=== PATIENT | female | born 1955 | race Caucasian/White ===

== ENCOUNTER 2017-01-13 22:25 | Emergency (ER) | payer BC, OTHER ==
[~2017-01-13 22:25] MED LIST: EFFE150C PO; FERR324T4 PO; GABA300 PO; PROT40TA PO; REME30TA2 PO; ZYPR2.5T2 PO
[2017-01-14 00:18] LABS: AUTOMATED NEUTROPHIL # 2.2 TH/MM3 (1.8-7.7); BASOPHIL % 0.7 % (0.0-2.0); EOSINOPHIL # 0.3 TH/MM3 (0-0.4); EOSINOPHIL % 5.4 % (0.0-4.0); HEMATOCRIT 35.5 % (35.0-46.0); HEMO FLAGS DIFF FINAL; LYMPH % 41.6 % (9.0-44.0); LYMPHOCYTE # 2.1 TH/MM3 (1.0-4.8); MEAN CELL VOLUME 92.8 FL (80.0-100.0); MEAN CORPUSCULAR HEMOGLOBIN 31.1 PG (27.0-34.0); MEAN CORPUSCULAR HGB CONC 33.5 % (32.0-36.0); MONO % 8.5 % (0.0-8.0); NEUT % 43.8 % (16.0-70.0); PLATELET COUNT 219 TH/MM3 (150-450); RED BLOOD COUNT 3.83 MIL/MM3 (4.00-5.30); RED CELL DISTRIBUTION WIDTH 14.8 % (11.6-17.2); WHITE BLOOD COUNT 5.1 TH/MM3 (4.0-11.0)
--- NOTE | 2017-01-14 00:23 | PD ---
HPI Chief Complaint: Psychiatric Symptoms Time Seen by Provider: 00:23 Travel History International Travel<30 days: No Contact w/Intl Traveler<30days: No Traveled to known affect area: No History of Present Illness HPI 61 year-old female presents to emergency department under a Marshall act for psychiatric evaluation. Patient was seen at [facility], medically cleared , and transferred here. Patient states she has history of depression and this is getting worse. She also reports a history of alcoholism and recent relapse. Denies any suicidal or homicidal ideations but states that her depression is getting worse and worse. Currently she has no acute medical needs to report. She is requesting something to help her sleep. PFSH Past Medical History Blood Disorders: No Depression: Yes Cancer: No Cardiovascular Problems: No Endocrine: No Genitourinary: No Immune Disorder: No Musculoskeletal: Yes Neurologic: No Psychiatric: Yes (H/O SELF INJURIOUS BEHAVIORS) Reproductive: No Respiratory: No Past Surgical History Section: Yes (X 2 IN 1989 AND 1995) Cholecystectomy: Yes (1996) Gynecologic Surgery: Yes ( X2) Neurologic Surgery: Yes (L5, S1 DISC) Social History Alcohol Use: Yes (WINE DAILY) Tobacco Use: No Substance Use: Yes (WINE /VODKA1 WEEK AGO, DRINKS IN EXCESS) Allergies-Medications (Allergen,Severity, Reaction): Coded Allergies: Buspar (Verified Allergy, Severe, 09/01/08) Phenergan (Verified Allergy, Severe, HTN, 09/01/08) Sulfa (Verified Allergy, Severe, VOMITING, 09/01/08) Wellbutrin (Verified Allergy, Severe, HTN, 09/01/08) Reported Meds & Prescriptions Reported Meds & Active Scripts Active Reported Remeron Cathy-Tab (Mirtazapine) 30 Mg Tab 45 Mg PO HS Neurontin (Gabapentin) 300 Mg Cap 300 Mg PO 9A AND NOON Zyprexa (Olanzapine) 2.5 Mg Tab 2.5 Mg PO BID Remeron Cathy-Tab (Mirtazapine) 30 Mg Tab 45 Mg PO Effexor Xr (Venlafaxine HCl) 150 Mg Cap 150 Mg PO BID Protonix (Pantoprazole Sodium) 40 Mg Tabdr 40 Mg PO DAILY Ferrous Sulfate 325 Mg Tab 325 Mg PO 6 Ferrous Sulfate 325 Mg Tab 325 Mg PO DAILY Review of Systems Except as stated in HPI: all other systems reviewed are Neg Physical Exam Narrative GENERAL: Well-nourished female patient, in no acute distress SKIN: Focused skin assessment warm/dry. HEAD: Atraumatic. Normocephalic. EYES: Pupils equal and round. No scleral icterus. No injection or drainage. ENT: No nasal bleeding or discharge. Mucous membranes pink and moist. NECK: Trachea midline. No JVD. CARDIOVASCULAR: Regular rate and rhythm. No murmur appreciated. RESPIRATORY: No accessory muscle use. Clear to auscultation. Breath sounds equal bilaterally. GASTROINTESTINAL: Abdomen soft, non-tender, nondistended. Hepatic and splenic margins not palpable. MUSCULOSKELETAL: No obvious deformities. No clubbing. No cyanosis. No edema. NEUROLOGICAL: Awake and alert. No obvious cranial nerve deficits. Motor grossly within normal limits. Normal speech. Data Data Last Documented VS Vital Signs Date Time Temp Pulse Resp B/P Pulse Ox O2 Delivery O2 Flow Rate FiO2 01/14/17 02:09 58 18 135/63 99 Room Air Orders Psych Screen (01/13/17 22:46) Complete Blood Count With Diff (01/13/17 23:29) Basic Metabolic Panel (Bmp) (01/13/17 23:29) Drug Screen, Random Urine (01/13/17 23:29) Alcohol (Ethanol) (01/13/17 23:29) Zolpidem (Ambien) (01/14/17 01:00) Diet Regular Basic (01/14/17 Breakfast) Labs Laboratory Tests Test 01/13/17 01/14/17 23:55 00:05 White Blood Count 5.1 TH/MM3 Red Blood Count 3.83 MIL/MM3 Hemoglobin 11.9 GM/DL Hematocrit 35.5 % Mean Corpuscular Volume 92.8 FL Mean Corpuscular Hemoglobin 31.1 PG Mean Corpuscular Hemoglobin 33.5 % Concent Red Cell Distribution Width 14.8 % Platelet Count 219 TH/MM3 Mean Platelet Volume 8.4 FL Neutrophils (%) (Auto) 43.8 % Lymphocytes (%) (Auto) 41.6 % Monocytes (%) (Auto) 8.5 % Eosinophils (%) (Auto) 5.4 % Basophils (%) (Auto) 0.7 % Neutrophils # (Auto) 2.2 TH/MM3 Lymphocytes # (Auto) 2.1 TH/MM3 Monocytes # (Auto) 0.4 TH/MM3 Eosinophils # (Auto) 0.3 TH/MM3 Basophils # (Auto) 0.0 TH/MM3 CBC Comment DIFF FINAL Differential Comment Sodium Level 141 MEQ/L Potassium Level 3.9 MEQ/L Chloride Level 105 MEQ/L Carbon Dioxide Level 30.5 MEQ/L Anion Gap 6 MEQ/L Blood Urea Nitrogen 14 MG/DL Creatinine 1.05 MG/DL Estimat Glomerular Filtration 54 ML/MIN Rate Random Glucose 136 MG/DL Calcium Level 9.2 MG/DL Ethyl Alcohol Level LESS THAN 3 MG/DL Urine Opiates Screen NEG Urine Barbiturates Screen NEG Urine Amphetamines Screen NEG Urine Benzodiazepines Screen POS Urine Cocaine Screen NEG Urine Cannabinoids Screen NEG MDM Medical Decision Making Medical Screen Exam Complete: Yes Emergency Medical Condition: Yes Medical Record Reviewed: Yes Differential Diagnosis Depression versus major disorder versus personality disorder versus adjustment reaction disorder Narrative Course 61-year-old female presents to the emergency department under Marshall act for psychiatric evaluation. Patient has already been medically cleared at [facility]. 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 Patient does have some renal insufficiency. She is positive for benzodiazepines. Patient is medically cleared and a psychiatric screening for further evaluation and disposition. Mental health screening discussed with the patient. Psychiatric screen ordered. Diagnosis Primary Impression: Depressed Qualified Code: F32.89 - Other depression Condition: Stable NogueiraDeann gooden DIMITRI January 14, 2017 00:23
[2017-01-14 00:28] LABS: AMPHETAMINE, URINE NEG (NEG); BARBITURATES, URINE NEG (NEG); COCAINE, URINE NEG (NEG)
[2017-01-14 00:32] LABS: ANION GAP 6 MEQ/L (5-15); BICARBONATE 30.5 MEQ/L (21.0-32.0); BLOOD UREA NITROGEN 14 MG/DL (7-18); CHLORIDE 105 MEQ/L (98-107); GLOMERULAR FILTRATION RATE 54 ML/MIN (>89); POTASSIUM 3.9 MEQ/L (3.5-5.1); SODIUM (NA) 141 MEQ/L (136-145)
[2017-01-14] MEDS ORDERED: ZOLPIDEM TARTRATE 10 MG TAB PO ONE (01:00)
[2017-01-14 02:09] VITALS: BP 135/63; PULSE 58; RESP 18; O2SAT 99
[2017-01-14 06:00] VITALS: BP 138/62; PULSE 71; RESP 18; O2SAT 98
[2017-01-14] MEDS ORDERED: NALT50TA3 PO (08:16)
[2017-01-14] MEDS ORDERED: FLUO40CA PO (08:16)
[2017-01-14] MEDS ORDERED: LISI-519 PO (08:16)
[2017-01-14] MEDS ORDERED: SERO100T PO (08:16)
[2017-01-14] MEDS ORDERED: CLON1TAB PO (08:16)
[2017-01-14] MEDS ORDERED: AMBI10TA PO (08:16)
[2017-01-14] MEDS ORDERED: CHLO10CA2 PO (08:16)
[2017-01-14 10:29] VITALS: BP 149/80; PULSE 73; RESP 20; TEMP 97.5; O2SAT 97
[2017-01-14] MEDS ORDERED: clonazePAM 1 MG TAB PO ONE (11:15)
--- NOTE | 2017-01-14 19:09 | PD ---
History of Present Illness Chief Complaint: Psychiatric Symptoms Time Seen by Provider: 10:20 Travel History International Travel<30 Days: No Contact w/Intl Traveler<30days: No Known affected area: No Legal Status Legal Status: Marshall Act Marshall Act Signed By: DR LINDSAY MADISON Marshall Act Comment: CAME FROM [facility] History of Present Illness: History of Present Illness HPI 61 year-old female with history of alcohol abuse, depression and anxiety who presents to emergency department under a Marshall act initiated by Dr. Madison at [facility] for psychiatric evaluation. Patient presented to [facility] voluntarily for psychiatric as she was feeling more depressed and also feeling that her medications were not working. her psychiatric medication had been adjusted by her outpatient psychiatrist within the last 2 weeks.her outpatient psychiatrist referred her to hospital for evaluation. Patient is alert and oriented. She is reporting feeling anxious since she has not had any of her medication. She is cooperative and engaging. Speech is clear and logical. There is no pressure. There is no psychosis. No suicidal or homicidal ideation. She dos report mood lability as well as increase in anxiety. She is requesting discharge from [facility] as she has had previously been treated at [facility] and she wants to return there for treatment. her sponsor will pick her up and take her there for admission. Current toxicology is positive for prescribed benzos. No alcohol. PFSH Past Medical History Blood Disorders: No Depression: Yes Cancer: No Cardiovascular Problems: No Endocrine: No Genitourinary: No Immune Disorder: No Musculoskeletal: Yes Neurologic: No Psychiatric: Yes (H/O SELF INJURIOUS BEHAVIORS) Reproductive: No Respiratory: No Past Surgical History Section: Yes (X 2 IN 1989 AND 1995) Cholecystectomy: Yes (1996) Gynecologic Surgery: Yes ( X2) Neurologic Surgery: Yes (L5, S1 DISC) Psychiatric History Psychiatric History Hx Psychiatric Treatment: Currently is a patietn of Dr. Norris. History of Inpatient Treatment: Yes ([facility] in February 2016. Dual dx program) Social History Single female. Is currently living with a sponsor. 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 Hx Alcohol Use: Yes (WINE DAILY) Hx Tobacco Use: No Hx Substance Use: Yes (WINE /VODKA1 WEEK AGO, DRINKS IN EXCESS) Substance Use Type: Alcohol (currently 2 weeks sober) Hx of Substance Use Treatment: Yes ([facility]) Family Psychiatric History Negative Allergies-Medications (Allergen,Severity, Reaction): Coded Allergies: Buspar (Verified Allergy, Severe, 09/01/08) Phenergan (Verified Allergy, Severe, HTN, 09/01/08) Sulfa (Verified Allergy, Severe, VOMITING, 09/01/08) Wellbutrin (Verified Allergy, Severe, HTN, 09/01/08) Reported Meds & Prescriptions Reported Meds & Active Scripts Active Reported Ambien (Zolpidem Tartrate) 10 Mg Tab 10 Mg PO HS PRN Seroquel (Quetiapine Fumarate) 100 Mg Tab 150 Mg PO HS Naltrexone (Naltrexone HCl) 50 Mg Tab 50 Mg PO DAILY Lisinopril 5 Mg Tab 5 Mg PO DAILY Fluoxetine (Fluoxetine HCl) 40 Mg Cap 40 Cap PO DAILY Clonazepam 1 Mg Tab 1 Mg PO BID Chlordiazepoxide (Chlordiazepoxide HCl) 10 Mg Cap 10 Mg PO TID PRN Review of Systems Except as stated in HPI: all other systems reviewed are Neg Exam Alert: Yes [place]: Person (ox4) Mood: Anxious Affect: Appropriate Speech: Clear, Logical Eye Contact: Normal Memory Intact: Comment (not impaired) Hallucinations: Other (neagtive) Delusions: No Suicidal: Ideation (deneis any) Homicidal: Ideation (deneis any) Insight/Judgement Fair. Not impaired. MDM Medical Decision Making Medical Record Reviewed: Yes Assessment/Plan 61 year old female under a BA with hx of alcohol abuse, depression as well as anxiety who is transferred from [facility]. She is reporting increase in anxiety and mood lability after recent medication changes. She has also had a recent relapse. She is seeking admission to [facility] for treatment of both her substance use as well as her psychiatric issues. She does not meet BA criteria . She is requesting discharge in order to seek treatment at another facility. Orders Psych Screen (01/13/17 22:46) Complete Blood Count With Diff (01/13/17 23:29) Basic Metabolic Panel (Bmp) (01/13/17 23:29) Drug Screen, Random Urine (01/13/17 23:29) Alcohol (Ethanol) (01/13/17 23:29) Zolpidem (Ambien) (01/14/17 01:00) Diet Regular Basic (01/14/17 Breakfast) Clonazepam (Klonopin) (01/14/17 11:15) Results Vital Signs Date Time Temp Pulse Resp B/P Pulse Ox O2 Delivery O2 Flow Rate FiO2 01/14/17 10:29 97.5 73 20 149/80 97 01/14/17 06:00 71 18 138/62 98 Room Air 01/14/17 02:09 58 18 135/63 99 Room Air Laboratory Tests Test 01/13/17 01/14/17 23:55 00:05 White Blood Count 5.1 Red Blood Count 3.83 Hemoglobin 11.9 Hematocrit 35.5 Mean Corpuscular Volume 92.8 Mean Corpuscular Hemoglobin 31.1 Mean Corpuscular Hemoglobin 33.5 Concent Red Cell Distribution Width 14.8 Platelet Count 219 Mean Platelet Volume 8.4 Neutrophils (%) (Auto) 43.8 Lymphocytes (%) (Auto) 41.6 Monocytes (%) (Auto) 8.5 Eosinophils (%) (Auto) 5.4 Basophils (%) (Auto) 0.7 Neutrophils # (Auto) 2.2 Lymphocytes # (Auto) 2.1 Monocytes # (Auto) 0.4 Eosinophils # (Auto) 0.3 Basophils # (Auto) 0.0 CBC Comment DIFF FINAL Differential Comment Sodium Level 141 Potassium Level 3.9 Chloride Level 105 Carbon Dioxide Level 30.5 Anion Gap 6 Blood Urea Nitrogen 14 Creatinine 1.05 Estimat Glomerular Filtration 54 Rate Random Glucose 136 Calcium Level 9.2 Ethyl Alcohol Level LESS THAN 3 Urine Opiates Screen NEG Urine Barbiturates Screen NEG Urine Amphetamines Screen NEG Urine Benzodiazepines Screen POS Urine Cocaine Screen NEG Urine Cannabinoids Screen NEG Diagnosis Primary Impression: Depression Additional Impression: Alcohol abuse Psychiatrically Cleared: Yes Departure Forms: Tests/Procedures Patient Instructions: General Instructions, Depression (ED) Additional Instructions: FOLLOW UP WITH YOUR CURRENT TREATMENT PROVIDERS Med/ Other Pt Specific Info: No Change to Meds Disposition: 01 DISCHARGE HOME Condition: Stable Problem Qualifiers Primary Impression: Depression Qualified Code: F33.1 - Moderate episode of recurrent major depressive disorder Padmini Ojeda January 14, 2017 19:09
== END 2017-01-14 11:20 | disposition home or self-care (01) ==
LOC: NEPJ 22:25
DX: F32.89 Other specified depressive episodes (principal); F10.10 Alcohol abuse, uncomplicated; Y90.0 Blood alcohol level of less than 20 mg/100 ml; Z79.899 Other long term (current) drug therapy
CPT/HCPCS: 80048; 80307; 85025; 99283